=== PATIENT | female | born 1985 | race Caucasian/White ===

== ENCOUNTER 2016-12-29 12:18 | Emergency (ER) | payer OTHER ==
[~2016-12-29] VITALS: Ht 154.9 cm; Wt 88.0 kg
[~2016-12-29 12:18] MED LIST: ANTISOL30 RIGHT EAR; CLIN1CAP6 PO; MOTR200T PO; PRED20 PO
[2016-12-29 12:20] VITALS: BP 136/75; PULSE 135; RESP 20; TEMP 98; O2SAT 100
--- NOTE | 2016-12-29 12:42 | PD ---
HPI Chief Complaint: Abdominal Pain Time Seen by Provider: 12:42 Travel History International Travel<30 days: No Contact w/Intl Traveler<30days: No Traveled to known affect area: No History of Present Illness HPI 31-year-old female presents to the emergency Department with complaint of abdominal cramping and vaginal bleeding that started this morning at approximately 8:30 AM. Reports having 4 weeks . Last menstrual period was November 16. Denies fever, nausea, vomiting. denies dysuria. Pain is mostly right-sided and into her back. Has no medical complaints. No known allergies. No other modifying factors or associated signs and symptoms. PFSH Past Medical History Diminished Hearing: No Musculoskeletal: Yes (SCOLIOSIS) Respiratory: Yes (former smoker) Immunizations Current: No ?: LMP: 11/18/2016 : 2 Para: 1 Miscarriage: 0 : 1 Dilation and Curettage (D&C): Yes (08/13/15) Social History Alcohol Use: Yes (OCC) Tobacco Use: Yes (1PPD) Substance Use: No Allergies-Medications (Allergen,Severity, Reaction): Coded Allergies: No Known Allergies (Verified , 12/29/16) Reported Meds & Prescriptions Reported Meds & Active Scripts Active Antipyrine/Benzocaine Otic (Benzocaine/Antipyrine) 10 Ml Soln 2 Drop RIGHT EAR Q2H PRN Deltasone (Prednisone) 20 Mg Tab 40 Mg PO DAILY Clindamycin Hcl (Clindamycin HCl) 300 Mg Cap 300 Mg PO Q8HR Reported Ibuprofen Ib (Ibuprofen) 200 Mg Tab 800 Mg PO ONCE PRN Review of Systems Except as stated in HPI: all other systems reviewed are Neg Physical Exam Narrative GENERAL: Well-nourished, well-developed female patient, in no acute distress; afebrile SKIN: Warm and dry. HEAD: Atraumatic. Normocephalic. EYES: Pupils equal and round. No scleral icterus. No injection or drainage. ENT: Mucosa pink and moist. Airway patent. NECK: Trachea midline. CARDIOVASCULAR: Regular rate and rhythm. No murmur appreciated. RESPIRATORY: No accessory muscle use. Clear to auscultation. Breath sounds equal bilaterally. GASTROINTESTINAL: Abdomen soft, tenderness on palpation to right lower quadrant , nondistended. Hepatic and splenic margins not palpable. Bowel sounds are active 4 quadrants. Nonrigid. no bladder tenderness or distention. MUSCULOSKELETAL: No obvious deformities. No clubbing. No cyanosis. No edema. NEUROLOGICAL: Awake and alert. Oriented 3. No obvious cranial nerve deficits. Motor grossly within normal limits. Normal speech. PSYCHIATRIC: Appropriate mood and affect; insight and judgment normal. Data Data Last Documented VS Vital Signs Date Time Temp Pulse Resp B/P Pulse Ox O2 Delivery O2 Flow Rate FiO2 12/29/16 13:30 97 18 113/67 100 Room Air 12/29/16 12:20 98.0 Orders Beta Hcg (Quant/Titer) (12/29/16 12:43) Us Pelvis (Ques Pr/Ect)W Trans (12/29/16 ) Urinalysis - C+S If Indicated (12/29/16 12:43) Ed Urine Pregnancytest Poc (12/29/16 12:43) Labs Laboratory Tests Test 12/29/16 12:49 Urine Color YELLOW Urine Turbidity HAZY Urine pH 6.0 Urine Specific [place] 1.011 Urine Protein NEG mg/dL Urine Glucose (UA) NEG mg/dL Urine Ketones NEG mg/dL Urine Occult Blood LARGE Urine Nitrite NEG Urine Bilirubin NEG Urine Urobilinogen LESS THAN 2.0 MG/DL Urine Leukocyte Esterase NEG Urine RBC 1 /hpf Urine WBC 2 /hpf Urine Squamous Epithelial 2 /hpf Cells Urine Bacteria RARE /hpf Urine Mucus FEW /lpf Microscopic Urinalysis Comment CULT NOT INDICATED Human Chorionic Gonadotropin, 5390 MIU/ML Quant MDM Medical Decision Making Medical Screen Exam Complete: Yes Emergency Medical Condition: Yes Medical Record Reviewed: Yes Differential Diagnosis Threatened miscarriage, miscarriage, ectopic Narrative Course 31-year-old female that states she is proximally 4 weeks with vaginal bleeding and lower abdominal pain that started today. Denies fever, vomiting. Last menstrual period was November 16. Heart rate recheck on physical exam is approximately 90-100 bpm. Blood type O+. I discussed the patient with Dr. Hathaway, my attending physician, and she recommended beta hCG, urine , urinalysis, pelvic with transvaginal ultrasound. Orders are entered. 1347: HCG 5390. Ultrasound findings conclude: Last 24 hours Impressions Pelvis Ultrasound 12/29/16 0000 Signed Impressions: Service Date/Time: Thursday, December 29, 2016 14:33 - CONCLUSION: 1. Single intrauterine with crown-rump length characteristic of 5 week 5 day gestational age. No heart rate identified likely due to early dates. 3 cm corpus luteum cyst left ovary. MD Dr. Rivas White, my attending physician, talked with the patient and gave discharge instructions. Instructed patient to follow up with primary care provider. Patient verbalizes understanding and agreement with treatment plan. Patient is medically cleared and stable for discharge. Discussed reasons to return to the emergency department. Patient agrees with treatment plan. The patients vital signs are stable and the patient is stable for outpatient follow-up and treatment. Patient discharged home, stable and in no acute distress. Diagnosis Primary Impression: Intrauterine Additional Impression: Vaginal bleeding Referrals: Primary Care Physician Patient Instructions: General Instructions Additional Instructions: Ibuprofen or Tylenol as directed and as needed for pain Follow up in 48 hours for repeat hCG level Follow-up with infrastructure director Follow-up with primary care provider Return to the emergency department immediately with worsening symptoms Med/Other Pt SpecificInfo: No Change to Meds, No Meds Exist/No RX given Disposition: 01 DISCHARGE HOME Condition: Stable Pam Mckeon [facility] Dec 29, 2016 12:42
[2016-12-29 13:03] LABS: BACTERIA, URINE RARE /hpf; BLOOD, URINE LARGE (NEG); COMMENT (UR) CULT NOT INDICATED; CULTURE IF INDICATED CULT NOT INDICATED; GLUCOSE,URINE NEG (NEG); KETONE, URINE NEG (NEG); MUCUS URINE FEW /lpf (OCC); NITRITE,URINE NEG (NEG); SQUAMOUS EPITHELIAL CELL URINE 2 /hpf (0-5); URINE COLOR YELLOW (YELLW/STRAW)
[2016-12-29 13:30] VITALS: BP 113/67; PULSE 97; RESP 18; O2SAT 100
[2016-12-29 13:31] LABS: BETA HCG QUANT 5390 MIU/ML (0-5)
--- NOTE | 2016-12-29 15:12 | PD ---
Data Data Last Documented VS Vital Signs Date Time Temp Pulse Resp B/P Pulse Ox O2 Delivery O2 Flow Rate FiO2 12/29/16 13:30 97 18 113/67 100 Room Air 12/29/16 12:20 98.0 Orders Beta Hcg (Quant/Titer) (12/29/16 12:43) Us Pelvis (Ques Pr/Ect)W Trans (12/29/16 ) Urinalysis - C+S If Indicated (12/29/16 12:43) Ed Urine Pregnancytest Poc (12/29/16 12:43) Labs Laboratory Tests Test 12/29/16 12:49 Urine Color YELLOW Urine Turbidity HAZY Urine pH 6.0 Urine Specific [place] 1.011 Urine Protein NEG mg/dL Urine Glucose (UA) NEG mg/dL Urine Ketones NEG mg/dL Urine Occult Blood LARGE Urine Nitrite NEG Urine Bilirubin NEG Urine Urobilinogen LESS THAN 2.0 MG/DL Urine Leukocyte Esterase NEG Urine RBC 1 /hpf Urine WBC 2 /hpf Urine Squamous Epithelial 2 /hpf Cells Urine Bacteria RARE /hpf Urine Mucus FEW /lpf Microscopic Urinalysis Comment CULT NOT INDICATED Human Chorionic Gonadotropin, 5390 MIU/ML Quant MDM Supervised Visit with VIJI: Yes Narrative Course I, Dr. Hathaway, have reviewed the advance practice practioner's documentation and am in agreement, met with the patient face to face, made the diagnosis, and the medical decision making was done by me. *My assessment and Findings: 31-year-old female approximately 4-5 weeks based on LMP here with complaint of abdominal cramping and vaginal bleeding since 8:30 this morning. Her abdominal examination is benign, initially tachycardic in triage but normalized upon recheck. I suspicion for ruptured ectopic is low. Differential includes , ectopic , threatened AB, missed AB, inevitable AB. Beta Quant was around 5000 and ultrasound showed IUP measuring about 5 weeks but unable to identify heartbeat. This could be because of the gestational age or because of the inevitable miscarriage. Patient was informed of this and will return in 48 hours for repeat beta Quant. Diagnosis Primary Impression: Intrauterine Additional Impression: Vaginal bleeding Referrals: Primary Care Physician Patient Instructions: General Instructions, (ED), First Trimester Vaginal Bleed (ED) Departure Forms: Tests/Procedures Additional Instruction: Ibuprofen or Tylenol as directed and as needed for pain Follow up in 48 hours for repeat hCG level Follow-up with hogshead mat inspector Follow-up with primary care provider Return to the emergency department immediately with worsening symptoms Disposition: 01 DISCHARGE HOME Condition: Stable Carolyn Hathaway MD Dec 29, 2016 15:12
--- NOTE | 2016-12-29 15:51 | RADRPT ---
EXAM DATE/TIME: 12/29/2016 14:33 [facility] COMPARISON: No previous studies available for comparison. INDICATIONS : Pelvic pain and bleeding with . LAB(S): Beta-hC MEDICAL HISTORY : . . Scoliosis. SURGICAL HISTORY : Dilation and curettage. ENCOUNTER: Initial ACUITY: 1 day PAIN SCORE: 3/10 LOCATION: Bilateral pelvis MEASUREMENTS: UTERUS: 10.1 x 6.4 x 4.5 cm ENDOMETRIAL STRIPE: 13 mm RIGHT OVARY: 2.3 x 1.5 x 1.1 cm LEFT OVARY: 4.0 x 2.8 x 3.1 cm FREE FLUID: Yes Trace in posterior cul de sac and adjacent to the left ovary. CROWN RUMP LENGTH: 0.21 cm = 5 WKS 5 DAYS FHR: <<Non visualized likely due to early dates FINDINGS: Gestational sac is present characteristic of intrauterine . [place]-rump length measurements a re characteristic of a 5 week 5 day gestational age. No heart rate identified. Yolk sac identif ied. Right ovary unremarkable. Probable 3 cm corpus luteum cyst left ovary. Additional 2.6 cm cyst left ov indra. Trace free fluid. Nabothian cysts in the cervix. Also Bartholin's gland subcentimeter cyst. CONCLUSION: 1. Single intrauterine with crown-rump length characteristic of 5 week 5 day gestational ag e. No heart rate identified likely due to early dates. 3 cm corpus luteum cyst left ovary. Haris Campos MD on December 29, 2016 at 15:43 Board Certified Radiologist. This report was verified electronically.
== END 2016-12-29 15:23 | disposition home or self-care (01) ==
LOC: NEPD 12:18
DX: O26.859 Spotting complicating pregnancy, unspecified trimester (principal); M41.9 Scoliosis, unspecified; Z3A.01 Less than 8 weeks gestation of pregnancy
CPT/HCPCS: 76700; 76817; 81001; 84702; 84703; 99284

== ENCOUNTER 2016-12-31 18:06 | Emergency (ER) | payer OTHER ==
[~2016-12-31] VITALS: Ht 154.9 cm; Wt 86.0 kg
[2016-12-31 18:07] VITALS: BP 134/77; PULSE 94; RESP 20; TEMP 98.2; O2SAT 100
--- NOTE | 2016-12-31 21:52 | PD ---
HPI Chief Complaint: Related Problem Time Seen by Provider: 21:51 Travel History International Travel<30 days: No Contact w/Intl Traveler<30days: No Traveled to known affect area: No History of Present Illness HPI 31 year-old female presents to the emergency department for evaluation of vaginal bleeding. Patient states she is approximately 4 weeks , last menstrual cycle was November 16. She was seen and evaluated 2 days ago for the same symptoms. Ultrasound was done at that time and showed an intrauterine , approximately 5 weeks 5 days. No heartbeat was identified, possibly due to early gestation. Patient states shortly after her visit, her bleeding stopped. She states throughout the day today she has had bleeding only when wiping but has noticed some pieces of tissue on it. Has mild abdominal cramping. No fever or chills. No urinary symptoms. She has no other symptoms to report. PFSH Past Medical History Medical History: Denies Significant Hx Diminished Hearing: No Musculoskeletal: Yes (SCOLIOSIS) Respiratory: Yes (former smoker) Immunizations Current: Yes ?: : 2 Para: 1 Miscarriage: 0 : 1 Dilation and Curettage (D&C): Yes (08/13/15) Social History Alcohol Use: Yes (OCC) Tobacco Use: Yes Substance Use: No Allergies-Medications (Allergen,Severity, Reaction): Coded Allergies: No Known Allergies (Verified , 12/31/16) Reported Meds & Prescriptions Reported Meds & Active Scripts Active Se- 19 29-1 mg ( Vit W/ Docusate-Fe Fu) 1 Tab Tab 1 Tab PO DAILY 30 Days Keflex (Cephalexin) 500 Mg Cap 500 Mg PO Q12H 7 Days Review of Systems Except as stated in HPI: all other systems reviewed are Neg Physical Exam Narrative GENERAL: Well-nourished female patient, in no acute distress SKIN: Focused skin assessment warm/dry. HEAD: Atraumatic. Normocephalic. EYES: Pupils equal and round. No scleral icterus. No injection or drainage. ENT: No nasal bleeding or discharge. Mucous membranes pink and moist. NECK: Trachea midline. No JVD. CARDIOVASCULAR: Regular rate and rhythm. No murmur appreciated. RESPIRATORY: No accessory muscle use. Clear to auscultation. Breath sounds equal bilaterally. GASTROINTESTINAL: Abdomen soft, non-tender, nondistended. Hepatic and splenic margins not palpable. MUSCULOSKELETAL: No obvious deformities. No clubbing. No cyanosis. No edema. NEUROLOGICAL: Awake and alert. No obvious cranial nerve deficits. Motor grossly within normal limits. Normal speech. PSYCHIATRIC: Appropriate mood and affect; insight and judgment normal. Data Data Last Documented VS Vital Signs Date Time Temp Pulse Resp B/P Pulse Ox O2 Delivery O2 Flow Rate FiO2 12/31/16 21:53 57 16 118/62 100 Room Air 12/31/16 18:07 98.2 Orders Beta Hcg (Quant/Titer) (12/31/16 21:49) Urinalysis - C+S If Indicated (12/31/16 22:48) Labs Laboratory Tests Test 12/31/16 21:55 Human Chorionic Gonadotropin, 8626 MIU/ML Quant MDM Medical Decision Making Medical Screen Exam Complete: Yes Emergency Medical Condition: Yes Medical Record Reviewed: Yes Differential Diagnosis versus threatened miscarriage versus vaginal bleeding versus UTI versus missed Narrative Course 31 year-old female presents to the emergency department for evaluation. Patient appears without distress. Beta hCG is 8626. This is an increase from 2 days ago when it was 5390. Patient is given IV fluids. She defers pelvic exam at this time. I have discussed with the patient possibility of miscarriage versus threatened miscarriage. I advised pelvic rest and encouraged follow-up with her SAMPLING THEORY TEACHER Dr. Curran. Patient agrees with this plan of care and will contact his office tomorrow. Urinalysis two days ago wass with bacteria and patient will be started on keflex by mouth. Today's urine is yet to be sent. She is encouraged to follow- up with her primary provider and return immediately with any acute worsening symptoms. Diagnosis Primary Impression: Intrauterine Additional Impressions: Vaginal bleeding Bacteria in urine Referrals: Primary Care Physician Patient Instructions: First Trimester Vaginal Bleed (ED), General Instructions , Threatened Miscarriage (DC) Additional Instructions: Follow-up with your primary care provider Contact Dr. Curran's office tomorrow for follow-up Maintain adequate oral hydration Pelvic rest Avoid heavy lifting Return immediately with any acute worsening of symptoms Med/Other Pt SpecificInfo: Prescription(s) given Scripts Vit W/ Docusate-Fe Fu (Se- 19 29-1 mg)1 Tab Tab1 Tab PO DAILY 30 Days Ref 0 Prov:Vy Andrews 12/31/16 Cephalexin (Keflex)500 Mg Hue956 Mg PO Q12H 7 Days Ref 0 Prov:Vy Andrews 12/31/16 Disposition: 01 DISCHARGE HOME Condition: Stable Vy Andrews Dec 31, 2016 21:52
[2016-12-31 21:53] VITALS: BP 118/62; PULSE 57; RESP 16; O2SAT 100
[2016-12-31 22:46] LABS: BETA HCG QUANT 8626 MIU/ML (0-5)
[2016-12-31] MEDS ORDERED: SE-NTAB3 PO (23:42)
[2016-12-31] MEDS ORDERED: CEPH-460 PO (23:42)
[2016-12-31 23:59] LABS: BACTERIA, URINE RARE /hpf; BLOOD, URINE MOD (NEG); COMMENT (UR) CULT NOT INDICATED; CULTURE IF INDICATED CULT NOT INDICATED; GLUCOSE,URINE NEG (NEG); KETONE, URINE NEG (NEG); MUCUS URINE FEW /lpf (OCC); NITRITE,URINE NEG (NEG); SQUAMOUS EPITHELIAL CELL URINE 1 /hpf (0-5); URINE COLOR YELLOW (YELLW/STRAW)
== END 2017-01-01 00:20 | disposition home or self-care (01) ==
LOC: NEPD 18:06
DX: O20.9 Hemorrhage in early pregnancy, unspecified (principal); R82.71 Bacteriuria; M41.9 Scoliosis, unspecified; Z3A.01 Less than 8 weeks gestation of pregnancy
CPT/HCPCS: 81001; 84702; 99283